=== PATIENT | male | born 1960 | race Caucasian/White ===

== ENCOUNTER 2019-09-14 22:18 | Emergency (ER) | payer BC ==
[2019-09-14 22:51] VITALS: O2SAT 97
[2019-09-14] MEDS ORDERED: Augmentin 875-125 Tablet PO ONE (23:16)
[2019-09-14] MEDS ORDERED: Augmentin 875-125 Tablet ONE (23:28)
--- NOTE | 2019-09-14 23:31 | ERPHSYRPT ---
- History of Present Illness Patient Subjective Stated Complaint: Patient states " My dog at home is blind and hard of hearing and she was getting ready to run into something and i went to grab her and she bite my right index finger and it started to swell and I havent been able to bend it". Triage Nursing Assessment: Patient arrived to ER per self. Patient A/O times 4. Patient able to answer questions appropriatley and able to follow simple commands. Patient's right index finger red in color and swollen. 2 puncture alves noted to right index finger. 1st punture wound to top of right index finger measures 0.2 and < 0.1 in depth. 2 puncture wound noted to backside of right index finger that measures 0.5 and > 0.1 in depth. No drainage noted from punture wounds. Patient states is able to feel sensation. + radial pulse noted to right upper extremity. Patient states it really doesnt hurt until he trys to bend it. Physician History: 59 yo wm w own dog vs R index finger 14 hours prior to arrival. Pt UTD on tetanus. Dog is immunized and acting ok. Pt is R handed and denies other/ previous injuries. Pain 1/10 on scale. Timing/Duration: other (14 hours) Activities at Onset: none, other Severity of Dyspnea-Max: none Severity of Dyspnea-Current: none Possible Cause: no prior episodes Modifying Factors: Improves With: nothing Associated Symptoms: denies symptoms Allergies/Adverse Reactions: No Known Drug Allergies Allergy (Unverified 09/14/19 23:25) Hx Tetanus, Diphtheria Vaccination/Date Given: Yes Hx Influenza Vaccination/Date Given: No Hx Pneumococcal Vaccination/Date Given: No Immunizations Up to Date: Yes Travel Risk - International Travel Have you traveled outside of the country in past 3 weeks: No - Coronavirus Screening Are you exhibiting any of the following symptoms?: No Close contact with a COVID-19 positive Pt in past 14-21 Days: No - Review of Systems Constitutional: No Symptoms Eyes: No Symptoms Ears, Nose, & Throat: No Symptoms Respiratory: No Symptoms Cardiac: No Symptoms Abdominal/Gastrointestinal: No Symptoms Genitourinary Symptoms: No Symptoms Skin: No Symptoms Neurological: No Symptoms Psychological: No Symptoms Endocrine: No Symptoms Hematologic/Lymphatic: No Symptoms Immunological/Allergic: No Symptoms - Past Medical History Pertinent Past Medical History: No Neurological History: No Pertinent History ENT History: No Pertinent History Cardiac History: No Pertinent History Respiratory History: No Pertinent History Endocrine Medical History: No Pertinent History Musculoskeletal History: No Pertinent History GI Medical History: No Pertinent History History: No Pertinent History Psycho-Social History: No Pertinent History Male Reproductive Disorders: No Pertinent History - Past Surgical History Past Surgical History: Yes Neuro Surgical History: No Pertinent History Cardiac: No Pertinent History Respiratory: No Pertinent History Gastrointestinal: No Pertinent History Genitourinary: No Pertinent History Musculoskeletal: No Pertinent History Male Surgical History: No Pertinent History - Social History Smoking Status: Never smoker Exposure to second hand smoke: Yes Drug Use: none Patient Lives Alone: No Significant Family History: no pertinent family hx - Nursing Vital Signs Nursing Vital Signs: Initial Vital Signs Temperature 98.4 F 09/14/19 22:41 Pulse Rate 90 09/14/19 22:41 Respiratory Rate 18 09/14/19 22:41 Blood Pressure 170/95 09/14/19 22:41 O2 Sat by Pulse Oximetry 97 09/14/19 22:41 Pain Scale Pain Intensity 2 - Physical Exam General Appearance: no apparent distress Eye Exam: PERRL/EOMI, eyes nml inspection Ears, Nose, Throat Exam: hearing grossly normal Neck Exam: normal inspection, non-tender, full range of motion Respiratory Exam: normal breath sounds, lungs clear, airway intact Cardiovascular/Chest Exam: normal heart sounds, regular rate/rhythm, normal peripheral pulses, friction rub, No murmur Abdominal/Gastrointestinal Exam: soft, normal bowel sounds Rectal Exam: deferred Extremity Exam: swelling (R index w mild erythema/edema w small puncture wounds/ good distal capillary return and sensation) Neurologic Exam: alert, oriented x 3, cooperative Skin Exam: warm, dry Lymphatic Exam: No adenopathy SpO2 Interpretation: normal SpO2: 97 O2 Delivery: Room Air - Course Nursing assessment & vital signs reviewed: Yes Ordered Tests: Medication Summary Discontinued Medications Generic Name Dose Route Start Last Admin Trade Name Freq PRN Reason Stop Dose Admin Amoxicillin/Clavulanate Potassium 875 mg 09/14/19 23:16 Augmentin 875-125 Tablet PO 09/14/19 23:17 STAT ONE - Progress Progress: unchanged Air Movement: good Progress Note: 09/14/19 23:30 Pt UTD on tetanus after record search. He refuses pain meds. Augmentin started in ER. No need for XR due to minimal crush injury Counseled pt/family regarding: diagnosis, need for follow-up - Departure Departure Disposition: Home Clinical Impression: Dog bite Condition: Stable Critical Care Time: No Referrals: COLEEN COTTO [Primary Care Provider] - Additional Instructions: Continue with Augmentin in AM Wash finger twice a day with soap/water Watch for signs of infection-redness/pain/pus/temperature >100.5 Prescriptions: Amoxicillin/Potassium Clav [Augmentin 875-125 Tablet] 1 each PO BID #20 tablet
[2019-09-14 23:36] VITALS: BP 161/100; PULSE 84
== END 2019-09-14 23:44 | disposition home or self-care (01) ==
LOC: ED 22:18
DX: S60.470A Other superficial bite of right index finger, initial encounter (principal)
CPT/HCPCS: 99283; A9270-GY

== ENCOUNTER 2020-10-22 19:04 | Emergency (ER) | payer BC ==
--- NOTE | 2020-10-22 19:12 | ERPHSYRPT ---
- History of Present Illness Time Seen by Provider: 10/22/20 19:11 Historian: patient Exam Limitations: no limitations Physician History: This is a 60-year-old white male has had 2-day history of nausea and diarrhea. He had no vomiting. His was diagnosed with COVID-19 infection and his symptoms have worsened in the last couple days including a cough and myalgias a nd arthralgias. He has no chest pain. He has no significant shortness of breath. He is noted no significant abdominal pain. He is concerned because all day, prior to arrival he is had very clear liquid bowel movements every time he attempts to drink or eat. Timing/Duration: day(s) (2 days) Quality: cramping Abdominal Pain Onset Location: generalized abdomen Pain Radiation: no radiation Severity of Pain-Max: mild Severity of Pain-Current: mild Modifying Factors: Improves With: nothing Associated Symptoms: diarrhea, loss of appetite, nausea Previous symptoms: no prior history Allergies/Adverse Reactions: No Known Drug Allergies Allergy (Unverified 10/22/20 19:17) Home Medications: Ivermectin 18 mg PO DAILY 10/22/20 [History] Hx Tetanus, Diphtheria Vaccination/Date Given: Yes Hx Influenza Vaccination/Date Given: No Hx Pneumococcal Vaccination/Date Given: No Travel Risk - International Travel Have you traveled outside of the country in past 3 weeks: No - Coronavirus Screening Are you exhibiting any of the following symptoms?: No Close contact with a COVID-19 positive Pt in past 14-21 Days: No - Review of Systems Constitutional: No Symptoms Eyes: No Symptoms Ears, Nose, & Throat: No Symptoms Respiratory: No Symptoms Cardiac: No Symptoms Abdominal/Gastrointestinal: Abdominal Pain, Nausea, Diarrhea Genitourinary Symptoms: No Symptoms Musculoskeletal: No Symptoms Skin: No Symptoms Neurological: No Symptoms Psychological: No Symptoms Endocrine: No Symptoms Hematologic/Lymphatic: No Symptoms Immunological/Allergic: No Symptoms All Other Systems: Reviewed and Negative - Past Medical History Pertinent Past Medical History: No Neurological History: No Pertinent History ENT History: No Pertinent History Cardiac History: No Pertinent History Respiratory History: No Pertinent History Endocrine Medical History: No Pertinent History Musculoskeletal History: No Pertinent History GI Medical History: No Pertinent History History: No Pertinent History Psycho-Social History: No Pertinent History Male Reproductive Disorders: No Pertinent History - Past Surgical History Past Surgical History: Yes Neuro Surgical History: No Pertinent History Cardiac: No Pertinent History Respiratory: No Pertinent History Gastrointestinal: No Pertinent History Genitourinary: No Pertinent History Musculoskeletal: No Pertinent History Male Surgical History: No Pertinent History - Social History Smoking Status: Never smoker Exposure to second hand smoke: Yes Drug Use: none Patient Lives Alone: No Significant Family History: no pertinent family hx - Nursing Vital Signs Nursing Vital Signs: Initial Vital Signs Temperature 99 F 10/22/20 19:05 Pulse Rate 108 H 10/22/20 19:05 Respiratory Rate 18 10/22/20 19:05 Blood Pressure 143/95 10/22/20 19:05 O2 Sat by Pulse Oximetry 95 10/22/20 19:05 Pain Scale Pain Intensity 0 - Physical Exam General Appearance: no apparent distress, alert, anxiety Eye Exam: PERRL/EOMI, eyes nml inspection Ears, Nose, Throat Exam: normal ENT inspection, moist mucous membranes Neck Exam: normal inspection, non-tender, supple, full range of motion Respiratory Exam: normal breath sounds, lungs clear, airway intact, No chest tenderness, No respiratory distress Cardiovascular Exam: tachycardia Gastrointestinal/Abdomen Exam: soft, normal bowel sounds, tenderness (Mild diffuse) Rectal Exam: not done Extremity Exam: normal inspection, normal range of motion, pelvis stable Neurologic Exam: alert, oriented x 3, cooperative, director funeral II-XII nml as tested, normal mood/affect, nml cerebellar function, nml station & gait, sensation nml Skin Exam: normal color, warm, dry Lymphatic Exam: No adenopathy SpO2 Interpretation: normal O2 Delivery: Room Air - Course Nursing assessment & vital signs reviewed: Yes EKG Interpreted by Me: RATE (102), Sinus Tach, Right [place] Deviation, NORMAL INTERVALS, NORMAL QRS, NORMAL ST-T, Other (No acute ischemic changes. No comparison EKG available.) Ordered Tests: Active Orders 24 hr Category Date Time Status EKG-ER Only STAT Care 10/22/20 19:28 Active IV Insertion STAT Care 10/22/20 19:26 Active Isolation, Initiate & Maintain STAT Care 10/22/20 19:27 Active CHEST 1 VIEW (PORTABLE) Stat Exams 10/22/20 19:28 Taken CHEST WITH CONTRAST [CT] Stat Exams 10/22/20 20:38 Taken AMYLASE Stat Lab 10/22/20 19:53 Completed CBC W DIFF Stat Lab 10/22/20 19:53 Completed CMP Stat Lab 10/22/20 19:53 Completed D-DIMER QUANTITATIVE Stat Lab 10/22/20 19:53 Completed Ferritin Stat Lab 10/22/20 19:53 Completed LDH-LACTATE DEHYDROGENASE Stat Lab 10/22/20 19:53 Completed LIPASE Stat Lab 10/22/20 19:53 Completed Lactic Acid Stat Lab 10/22/20 19:50 Completed Wilkin Screen Stat Lab 10/22/20 19:53 Completed TROPONIN Q3H Lab 10/22/20 19:59 Completed TROPONIN Q3H Lab 10/22/20 22:10 Completed TROPONIN Q3H Lab 10/23/20 01:30 Ordered TROPONIN Q3H Lab 10/23/20 04:30 Ordered TROPONIN Q3H Lab 10/23/20 07:30 Ordered UA W/RFX UR CULTURE Stat Lab 10/22/20 19:53 Completed Medication Summary Discontinued Medications Generic Name Dose Route Start Last Admin Trade Name Freq PRN Reason Stop Dose Admin Sodium Chloride 1,000 mls @ 999 mls/hr 10/22/20 19:26 10/22/20 20:38 Sodium Chloride 0.9% 1000 Ml IV 10/22/20 20:26 Infused .Q1H1M STA Infusion Sodium Chloride Confirm 10/22/20 19:29 Sodium Chloride 0.9% 1000 Ml Administered 10/22/20 19:30 Dose 1,000 mls @ ud .ROUTE .STK-MED ONE Sodium Chloride 1,000 mls @ 999 mls/hr 10/22/20 20:39 10/22/20 22:04 Sodium Chloride 0.9% 1000 Ml IV 10/22/20 21:39 Infused .Q1H1M STA Infusion Sodium Chloride Confirm 10/22/20 20:48 Sodium Chloride 0.9% 1000 Ml Administered 10/22/20 20:49 Dose 1,000 mls @ ud .ROUTE .STK-MED ONE Ondansetron HCl 4 mg 10/22/20 19:26 10/22/20 19:30 Zofran 4 Mg/2 Ml Vial IV 10/22/20 19:27 4 mg STAT ONE Administration Ondansetron HCl Confirm 10/22/20 19:29 Zofran 4 Mg/2 Ml Vial Administered 10/22/20 19:30 Dose 4 mg .ROUTE .STK-MED ONE Lab/Rad Data: Laboratory Result Diagrams 10/22/20 19:53 10/22/20 19:53 Laboratory Results 10/22/20 10/22/20 10/22/20 Range/Units 22:10 19:59 19:53 WBC (4.0-10.5) K/mm3 RBC (4.1-5.6) M/mm3 Hgb (12.5-18.0) gm/dl Hct (42-50) % MCV (78-100) fl MCH (26-32) pg MCHC (32-36) g/dl RDW (11.5-14.0) % Plt Count (150-450) K/mm3 MPV (7.5-11.0) fl Gran % (36.0-66.0) % Eos # (Auto) (0-0.5) Absolute Lymphs (auto) (1.0-4.6) Absolute Monos (auto) (0.0-1.3) Lymphocytes % (24.0-44.0) % Monocytes % (0.0-12.0) % Eosinophils % (0.00-5.0) % Basophils % (0.0-0.4) % Absolute Granulocytes (1.4-6.9) Basophils # (0-0.4) D-Dimer (215-500) ng/mL Sodium (137-145) mmol/L Potassium (3.5-5.1) mmol/L Chloride (98-107) mmol/L Carbon Dioxide (22-30) mmol/L Anion Gap (5-15) MEQ/L BUN (9-20) mg/dL Creatinine (0.66-1.25) mg/dL Estimated GFR ML/MIN Glucose (74-106) mg/dL Lactic Acid (0.4-2.0) Calcium (8.4-10.2) mg/dL Ferritin (17.9-464) ng/mL Total Bilirubin (0.2-1.3) mg/dL AST (17-59) U/L ALT (0-50) U/L Alkaline Phosphatase (38-126) U/L Lactate Dehydrogenase (120-246) U/L Troponin I < 0.012 < 0.012 (0.000-0.034) ng/mL Serum Total Protein (6.3-8.2) g/dL Albumin (3.5-5.0) g/dL Amylase (30-110) U/L Lipase (23-300) U/L Urine Color (YELLOW) Urine Appearance (CLEAR) Urine pH (5-6) Ur Specific [place] (1.005-1.025) Urine Protein (Negative) Urine Ketones (NEGATIVE) Urine Blood (0-5) Naman/ul Urine Nitrite (NEGATIVE) Urine Bilirubin (NEGATIVE) Urine Urobilinogen (0-1) mg/dL Ur Leukocyte Esterase (NEGATIVE) Urine WBC (Auto) (0-5) /HPF Urine RBC (Auto) (0-2) /HPF U Hyaline Cast (Auto) (0-2) /LPF U Epithel Cells (Auto) (FEW) /HPF Urine Bacteria (Auto) (NEGATIVE) /HPF Urine Mucus (Auto) (NEGATIVE) /HPF Urine Culture Reflexed (NO) Urine Glucose (NEGATIVE) mg/dL Monoscreen NEGATIVE (Negative) 10/22/20 10/22/20 10/22/20 Range/Units 19:53 19:53 19:53 WBC (4.0-10.5) K/mm3 RBC (4.1-5.6) M/mm3 Hgb (12.5-18.0) gm/dl Hct (42-50) % MCV (78-100) fl MCH (26-32) pg MCHC (32-36) g/dl RDW (11.5-14.0) % Plt Count (150-450) K/mm3 MPV (7.5-11.0) fl Gran % (36.0-66.0) % Eos # (Auto) (0-0.5) Absolute Lymphs (auto) (1.0-4.6) Absolute Monos (auto) (0.0-1.3) Lymphocytes % (24.0-44.0) % Monocytes % (0.0-12.0) % Eosinophils % (0.00-5.0) % Basophils % (0.0-0.4) % Absolute Granulocytes (1.4-6.9) Basophils # (0-0.4) D-Dimer 984 H* (215-500) ng/mL Sodium (137-145) mmol/L Potassium (3.5-5.1) mmol/L Chloride (98-107) mmol/L Carbon Dioxide (22-30) mmol/L Anion Gap (5-15) MEQ/L BUN (9-20) mg/dL Creatinine (0.66-1.25) mg/dL Estimated GFR ML/MIN Glucose (74-106) mg/dL Lactic Acid (0.4-2.0) Calcium (8.4-10.2) mg/dL Ferritin 345 (17.9-464) ng/mL Total Bilirubin (0.2-1.3) mg/dL AST (17-59) U/L ALT (0-50) U/L Alkaline Phosphatase (38-126) U/L Lactate Dehydrogenase 283 H (120-246) U/L Troponin I (0.000-0.034) ng/mL Serum Total Protein (6.3-8.2) g/dL Albumin (3.5-5.0) g/dL Amylase (30-110) U/L Lipase (23-300) U/L Urine Color (YELLOW) Urine Appearance (CLEAR) Urine pH (5-6) Ur Specific [place] (1.005-1.025) Urine Protein (Negative) Urine Ketones (NEGATIVE) Urine Blood (0-5) Naman/ul Urine Nitrite (NEGATIVE) Urine Bilirubin (NEGATIVE) Urine Urobilinogen (0-1) mg/dL Ur Leukocyte Esterase (NEGATIVE) Urine WBC (Auto) (0-5) /HPF Urine RBC (Auto) (0-2) /HPF U Hyaline Cast (Auto) (0-2) /LPF U Epithel Cells (Auto) (FEW) /HPF Urine Bacteria (Auto) (NEGATIVE) /HPF Urine Mucus (Auto) (NEGATIVE) /HPF Urine Culture Reflexed (NO) Urine Glucose (NEGATIVE) mg/dL Monoscreen (Negative) 10/22/20 10/22/20 10/22/20 Range/Units 19:53 19:53 19:53 WBC 6.1 (4.0-10.5) K/mm3 RBC 5.47 (4.1-5.6) M/mm3 Hgb 14.3 (12.5-18.0) gm/dl Hct 45.0 (42-50) % MCV 82.3 (78-100) fl MCH 26.1 (26-32) pg MCHC 31.8 L (32-36) g/dl RDW 15.1 H (11.5-14.0) % Plt Count 213 (150-450) K/mm3 MPV 9.5 (7.5-11.0) fl Gran % 73.5 H (36.0-66.0) % Eos # (Auto) 0.03 (0-0.5) Absolute Lymphs (auto) 1.05 (1.0-4.6) Absolute Monos (auto) 0.52 (0.0-1.3) Lymphocytes % 17.2 L (24.0-44.0) % Monocytes % 8.5 (0.0-12.0) % Eosinophils % 0.5 (0.00-5.0) % Basophils % 0.3 (0.0-0.4) % Absolute Granulocytes 4.47 (1.4-6.9) Basophils # 0.02 (0-0.4) D-Dimer (215-500) ng/mL Sodium 139 (137-145) mmol/L Potassium 4.4 (3.5-5.1) mmol/L Chloride 100 (98-107) mmol/L Carbon Dioxide 23 (22-30) mmol/L Anion Gap 19.8 H (5-15) MEQ/L BUN 18 (9-20) mg/dL Creatinine 1.15 (0.66-1.25) mg/dL Estimated GFR > 60.0 ML/MIN Glucose 109 H (74-106) mg/dL Lactic Acid (0.4-2.0) Calcium 9.3 (8.4-10.2) mg/dL Ferritin (17.9-464) ng/mL Total Bilirubin 0.40 (0.2-1.3) mg/dL AST 57 (17-59) U/L ALT 28 (0-50) U/L Alkaline Phosphatase 56 (38-126) U/L Lactate Dehydrogenase (120-246) U/L Troponin I (0.000-0.034) ng/mL Serum Total Protein 8.1 (6.3-8.2) g/dL Albumin 5.0 (3.5-5.0) g/dL Amylase 148 H (30-110) U/L Lipase 726 H (23-300) U/L Urine Color ROCÍO (YELLOW) Urine Appearance CLOUDY (CLEAR) Urine pH 5.0 (5-6) Ur Specific [place] 1.030 (1.005-1.025) Urine Protein 100 (Negative) Urine Ketones SMALL (NEGATIVE) Urine Blood NEGATIVE (0-5) Naman/ul Urine Nitrite NEGATIVE (NEGATIVE) Urine Bilirubin NEGATIVE (NEGATIVE) Urine Urobilinogen NEGATIVE (0-1) mg/dL Ur Leukocyte Esterase NEGATIVE (NEGATIVE) Urine WBC (Auto) 3-5 (0-5) /HPF Urine RBC (Auto) NONE SEEN (0-2) /HPF U Hyaline Cast (Auto) 11-25 (0-2) /LPF U Epithel Cells (Auto) RARE (FEW) /HPF Urine Bacteria (Auto) FEW (NEGATIVE) /HPF Urine Mucus (Auto) MANY (NEGATIVE) /HPF Urine Culture Reflexed NO (NO) Urine Glucose NEGATIVE (NEGATIVE) mg/dL Monoscreen (Negative) 10/22/20 Range/Units 19:50 WBC (4.0-10.5) K/mm3 RBC (4.1-5.6) M/mm3 Hgb (12.5-18.0) gm/dl Hct (42-50) % MCV (78-100) fl MCH (26-32) pg MCHC (32-36) g/dl RDW (11.5-14.0) % Plt Count (150-450) K/mm3 MPV (7.5-11.0) fl Gran % (36.0-66.0) % Eos # (Auto) (0-0.5) Absolute Lymphs (auto) (1.0-4.6) Absolute Monos (auto) (0.0-1.3) Lymphocytes % (24.0-44.0) % Monocytes % (0.0-12.0) % Eosinophils % (0.00-5.0) % Basophils % (0.0-0.4) % Absolute Granulocytes (1.4-6.9) Basophils # (0-0.4) D-Dimer (215-500) ng/mL Sodium (137-145) mmol/L Potassium (3.5-5.1) mmol/L Chloride (98-107) mmol/L Carbon Dioxide (22-30) mmol/L Anion Gap (5-15) MEQ/L BUN (9-20) mg/dL Creatinine (0.66-1.25) mg/dL Estimated GFR ML/MIN Glucose (74-106) mg/dL Lactic Acid 0.8 (0.4-2.0) Calcium (8.4-10.2) mg/dL Ferritin (17.9-464) ng/mL Total Bilirubin (0.2-1.3) mg/dL AST (17-59) U/L ALT (0-50) U/L Alkaline Phosphatase (38-126) U/L Lactate Dehydrogenase (120-246) U/L Troponin I (0.000-0.034) ng/mL Serum Total Protein (6.3-8.2) g/dL Albumin (3.5-5.0) g/dL Amylase (30-110) U/L Lipase (23-300) U/L Urine Color (YELLOW) Urine Appearance (CLEAR) Urine pH (5-6) Ur Specific [place] (1.005-1.025) Urine Protein (Negative) Urine Ketones (NEGATIVE) Urine Blood (0-5) Naman/ul Urine Nitrite (NEGATIVE) Urine Bilirubin (NEGATIVE) Urine Urobilinogen (0-1) mg/dL Ur Leukocyte Esterase (NEGATIVE) Urine WBC (Auto) (0-5) /HPF Urine RBC (Auto) (0-2) /HPF U Hyaline Cast (Auto) (0-2) /LPF U Epithel Cells (Auto) (FEW) /HPF Urine Bacteria (Auto) (NEGATIVE) /HPF Urine Mucus (Auto) (NEGATIVE) /HPF Urine Culture Reflexed (NO) Urine Glucose (NEGATIVE) mg/dL Monoscreen (Negative) - Progress Progress: improved Progress Note: 10/22/20 22:41 Chest x-ray shows no acute cardiopulmonary process. 10/22/20 23:36 CAT scan of the chest with contrast shows lateral multifocal groundglass opacities commonly seen in COVID-19 pneumonia. There are no pulmonary emboli p resent. There is no evidence of any pleural effusions or infiltrates 10/22/20 23:37 Medical decision making: This patient has clinical picture and radiographic findings consistent with COVID-19 infection. Patient is oxygenating well and feels much better after intravenous fluids. He wants to go home. I think this is reasonable. We will obtain a COVID-19 test that will be sent as an outpatient. He will confined himself to home until he receives word on his test results. Counseled pt/family regarding: lab results, diagnosis, need for follow-up, rad results - Departure Departure Disposition: Home Clinical Impression: Viral syndrome, Diarrhea Condition: Stable Critical Care Time: No Referrals: COLEEN COTTO [Primary Care Provider] - Additional Instructions: Drink plenty of fluids. Use Tylenol and ibuprofen every 4 hours as discussed to control fever and muscle aches and pains. Do not advance your diet until you are taking adequate amount of clear liquids well and often. Confine yourself to home until you are made aware of your COVID-19 test results.
[2020-10-22] MEDS ORDERED: Sodium Chloride 0.9% 1000 ML 1,000 ML IV STA ×2 (19:26→20:39)
[2020-10-22] MEDS ORDERED: Zofran 4 MG/2 ML VIAL IV ONE (19:26)
[2020-10-22] MEDS ORDERED: Sodium Chloride 0.9% 1000 ML 1,000 ML ONE ×2 (19:29→20:48)
[2020-10-22] MEDS ORDERED: Zofran 4 MG/2 ML VIAL ONE (19:29)
[2020-10-22 20:04] LABS: Absolute Neutrophil Ct (ANC) 4.47 (1.4-6.9); BASOPHIL % 0.3 % (0.0-0.4); Basophil (Absolute #) 0.02 (0-0.4); Eosinophil % 0.5 % (0.00-5.0); Eosinophil (Absolute #) 0.03 (0-0.5); Hemoglobin 14.3 gm/dl (12.5-18.0); Lymphocyte (Absolute #) 1.05 (1.0-4.6); Lymphocytes % 17.2 % (24.0-44.0); Mean Cell Volume 82.3 fl (78-100); Mean Corpuscular Hemoglobin 26.1 pg (26-32); Mean Corpuscular Hgb Concent. 31.8 g/dl (32-36); Mean Platelet Volume 9.5 fl (7.5-11.0); Monocyte (Absolute #) 0.52 (0.0-1.3); Monocytes % 8.5 % (0.0-12.0); Neutrophil % 73.5 % (36.0-66.0); Platelet Count 213 K/mm3 (150-450); Red Blood Count 5.47 M/mm3 (4.1-5.6); Red Cell Distribution Width 15.1 % (11.5-14.0); White Blood Count 6.1 K/mm3 (4.0-10.5)
[2020-10-22 20:21] LABS: Appearance CLOUDY (CLEAR); Bacteria FEW /HPF (NEGATIVE); Bilirubin NEGATIVE (NEGATIVE); Blood NEGATIVE Ery/ul (0-5); Epithelial Cells RARE /HPF (FEW); Glucose NEGATIVE (NEGATIVE); Ketones SMALL (NEGATIVE); Leukocyte Esterase NEGATIVE (NEGATIVE); Mucus MANY /HPF (NEGATIVE); Nitrite NEGATIVE (NEGATIVE); Protein,Urine Dip 100 (Negative); Urobilinogen NEGATIVE mg/dL (0-1)
[2020-10-22 20:25] LABS: ALKALINE PHOSPHATASE 56 U/L (38-126); AMYLASE 148 U/L (30-110); ANION GAP 19.8 MEQ/L (5-15); BLOOD UREA NITROGEN 18 mg/dL (9-20); CHLORIDE 100 mmol/L (98-107); Calcium 9.3 mg/dL (8.4-10.2); Carbon Dioxide 23 mmol/L (22-30); Creatinine 1 1.15 mg/dL (0.66-1.25); EST GLOMERULAR FILTRATION RATE > 60.0 ML/MIN; Glucose 109 mg/dL (74-106); LIPASE 726 U/L (23-300); Potassium 4.4 mmol/L (3.5-5.1); RBC NONE SEEN /HPF (0-2); SGOT/AST 57 U/L (17-59); SGPT/ALT 28 U/L (0-50); SODIUM 139 mmol/L (137-145); Total Protein 8.1 g/dL (6.3-8.2)
[2020-10-22] MEDS ORDERED: Lactated Ringers 1,000 ML IV ONE ×2 (23:31→23:32)
[2020-10-23 00:11] VITALS: BP 152/100; PULSE 88; O2SAT 96
[2020-10-23 01:47] LABS: Adenovirus F 40/41 NEGATIVE (NEGATIVE); Astrovirus NEGATIVE (NEGATIVE); C. Difficile Organism NEGATIVE (NEGATIVE); Campylobacter NEGATIVE (NEGATIVE); Cryptosporidium NEGATIVE (NEGATIVE); Cyclospora cayentanensis NEGATIVE (NEGATIVE); Entamoeaba histolytica NEGATIVE (NEGATIVE); Enteroaggregative E.coli NEGATIVE (NEGATIVE); Enteropathogenic E.coli NEGATIVE (NEGATIVE); Enterotoxigenic E.coli NEGATIVE (NEGATIVE); Giardia lamblia NEGATIVE (NEGATIVE); Norovirus GI/GII NEGATIVE (NEGATIVE); Plesiomonas shigelloides NEGATIVE (NEGATIVE); Rotavirus A NEGATIVE (NEGATIVE); Salmonella NEGATIVE (NEGATIVE); Sapovirus NEGATIVE (NEGATIVE); Shiga-like toxin prod.E.coli NEGATIVE (NEGATIVE); Vibrio NEGATIVE (NEGATIVE); Vibrio cholerae NEGATIVE (NEGATIVE); Yersinia enterocolitica NEGATIVE (NEGATIVE)
--- NOTE | 2020-10-23 07:55 | XRAY ---
Indication: Cough. Comparison: None Portable chest demonstrates subtle patchy bibasilar groundglass airspace disease without consolidation/large effusion. Remaining heart and lungs unremarkable. Bony thorax intact.
--- NOTE | 2020-10-23 08:01 | XRAY ---
Indication: Fever and cough. Elevated d-dimer. Multiple contiguous axial images obtained through the chest using 100 cc Isovue 370 contrast and PE protocol. Comparison: None There is good opacification of the pulmonary arteries to include the lobar and segmental branches. No pulmonary embolus. Heart not enlarged. Aorta normal in course and caliber. No pathologic mediastinal/hilar lymphadenopathy. Lungs demonstrates several round peripheral groundglass airspace opacities. No consolidation or effusion. Bony thorax intact. Limited upper abdomen unremarkable. Impression: 1. Negative pulmonary embolus. 2. Bilateral round peripheral groundglass airspace opacities. Commonly reported imaging features of COVID 19 pneumonia are present. Other processes such as influenza pneumonia and organizing pneumonia, as can be seen with drug toxicity and connective tissue disease, can cause a similar imaging pattern. Comment: Preliminary interpretation was made by [facility]. No critical discrepancy.
== END 2020-10-23 00:26 | disposition home or self-care (01) ==
LOC: ED 19:04
DX: B34.9 Viral infection, unspecified (principal); R19.7 Diarrhea, unspecified
CPT/HCPCS: 0097U; 36000; 36415; 71045; 71260; 80053; 81001; 82150; 82728; 83605; 83615; 83690; 84484; 85025; 85379; 86308; 93005; 96360; 96374; 99285; U0003; J2405

== ENCOUNTER 2021-03-29 06:30 | Day surgery (SDC) | payer BC ==
[~2021-03-29 06:30] MED LIST: Lactated Ringers 1,000 ML IV SCH
[2021-03-29] MEDS ORDERED: DIPRIVAN 200 MG/20 ML IV ONE (08:21)
--- NOTE | 2021-03-29 09:11 | OP ---
SURGERY DATE/TIME: 03/29/2021 0808 PREOPERATIVE DIAGNOSIS: Change in bowel habits. POSTOPERATIVE DIAGNOSIS: Normal colon. PROCEDURE: Colonoscopy. SURGEON: Neel Duarte M.D. ANESTHESIA: MAC by Christiano Rosenbaum CRNA. ESTIMATED BLOOD LOSS: None. SPECIMENS: None. DESCRIPTION OF PROCEDURE: After informed written consent was obtained, the patient was taken to the endoscopy suite. He had his anesthesia titrated to the desired level of consciousness in the left lateral decubitus position. Digital rectal exam showed normal sphincter tone and no internal lesions. The scope was inserted into the rectum and sequentially the entire colonic mucosa was traversed. The level of cecum was reached and verified with direct visualization of the ileocecal valve. Upon withdrawal careful mucosal inspection revealed no gross abnormalities. Prior to withdrawal retroflexion was performed and showed no internal lesions. The scope was removed. The patient was transferred to the recovery room in good condition.
[2021-03-29 09:15] VITALS: BP 150/87; PULSE 58; O2SAT 99
== END 2021-03-29 09:24 | disposition home or self-care (01) ==
LOC: SDC 06:30
PROVIDERS: ATTEND Family Medicine
DX: R19.4 Change in bowel habit (principal)
CPT/HCPCS: J2704

== ENCOUNTER 2022-09-17 21:50 | Emergency (ER) | payer BC ==
[2022-09-17] MEDS ORDERED: CLONIDINE 0.1 MG TABLET PO ONE (22:17)
[2022-09-17] MEDS ORDERED: CLONIDINE 0.1 MG TABLET ONE (22:21)
[2022-09-17 22:26] LABS: Absolute Neutrophil Ct (ANC) 3.55 x10^3/uL (1.4-6.9); BASOPHIL % 0.5 % (0.0-0.4); Basophil (Absolute #) 0.03 x10^3/uL (0-0.4); Eosinophil % 3.9 % (0.00-5.0); Eosinophil (Absolute #) 0.23 x10^3/uL (0-0.5); Hematocrit 40.3 % (42-50); Hemoglobin 12.5 g/dL (12.5-18.0); IMMATURE GRAN # 0.01 x10^3u/L (0.00-0.03); IMMATURE GRAN % 0.2 % (0.00-0.4); Lymphocyte (Absolute #) 1.59 x10^3/uL (1.0-4.6); Lymphocytes % 27.2 % (24.0-44.0); Mean Cell Volume 84.7 fL (78-100); Mean Corpuscular Hemoglobin 26.3 pg (26-32); Mean Platelet Volume 9.5 fL (7.5-11.0); Monocyte (Absolute #) 0.44 x10^3/uL (0.0-1.3); Monocytes % 7.5 % (0.0-12.0); Neutrophil % 60.7 % (36.0-66.0); Platelet Count 222 x10^3/uL (150-450); Red Blood Count 4.76 x10^6/uL (4.1-5.6); Red Cell Distribution Width 14.6 % (11.5-14.0); White Blood Count 5.9 x10^3/uL (4.0-10.5)
--- NOTE | 2022-09-17 22:34 | ERPHSYRPT ---
- History of Present Illness Source: patient, other () Exam Limitations: no limitations Patient Subjective Stated Complaint: pt states "last night around 10pm I was a little dizzy when I stood up but had not other symptoms. on and off today I have had some dizziness, left chest tightness (points to just under left breast), and slight nausea and slight headache. right now 2/10 left chest tightness but no other symptoms. I also feel like I need to take deep breaths like after I have been running". Triage Nursing Assessment: pt is alert and oriented times three and ambulated into room 5 independently with slow steady gait after standing on scale for weight acquisition. resp even and unlabored with occasional deep breath taken. no use of accessory muscles outside occasional deep breaths. able to move all extremities and speaks in complete sentences. denies n/v/ diarrhea, constipation, dizziness, lightheadedness, difficulty with urination or bowel elimination, numbness or tingling. no edema noted. bilat pedal pulse palpable strong and equal. heart sounds regular and normal. anterior lung sounds clear bilat in all [place]. abd soft, nontender, nondistended. cp is not reproducible with touch or movement. Physician History: 62 yo WM w dizziness/hypertension x 1 day. Pt also complains of headache/nausea/chest tightness which is L sternal. Chest pain is 2/10 and does not radiate. He denies focal weakness/dyspnea/cough/fever. Pt has a h/o untreated hypertension/hyperlipidemia. He does not smoke. Timing/Duration: today Severity: moderate Modifying Factors: Improves With: nothing Associated Symptoms: nausea, headaches Allergies/Adverse Reactions: No Known Drug Allergies Allergy (Verified 09/17/22 21:53) Hx Tetanus, Diphtheria Vaccination/Date Given: Yes Hx Influenza Vaccination/Date Given: No Hx Pneumococcal Vaccination/Date Given: No Immunizations Up to Date: Yes Travel Risk - International Travel Have you traveled outside of the country in past 3 weeks: No - Coronavirus Screening Are you exhibiting any of the following symptoms?: No Close contact with a COVID-19 positive Pt in past 14-21 Days: No - Vaccine Status Have you recieved a Covid-19 vaccination: No - Review of Systems Constitutional: No Symptoms Eyes: No Symptoms Ears, Nose, & Throat: No Symptoms Respiratory: No Symptoms Cardiac: No Symptoms, Chest Pain Abdominal/Gastrointestinal: No Symptoms, Nausea Genitourinary Symptoms: No Symptoms Musculoskeletal: No Symptoms Skin: No Symptoms Neurological: No Symptoms, Headache Psychological: No Symptoms Endocrine: No Symptoms Hematologic/Lymphatic: No Symptoms Immunological/Allergic: No Symptoms - Past Medical History Pertinent Past Medical History: Yes Neurological History: No Pertinent History ENT History: No Pertinent History Cardiac History: Hypertension Respiratory History: No Pertinent History Endocrine Medical History: No Pertinent History Musculoskeletal History: No Pertinent History GI Medical History: No Pertinent History History: No Pertinent History Psycho-Social History: No Pertinent History Male Reproductive Disorders: No Pertinent History - Past Surgical History Past Surgical History: Yes Neuro Surgical History: No Pertinent History Cardiac: No Pertinent History Respiratory: No Pertinent History Gastrointestinal: Other Genitourinary: No Pertinent History Musculoskeletal: No Pertinent History Male Surgical History: No Pertinent History 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 - Social History Smoking Status: Never smoker Exposure to second hand smoke: No Drug Use: none Patient Lives Alone: No Significant Family History: no pertinent family hx - Nursing Vital Signs Nursing Vital Signs: Initial Vital Signs Temperature 98.0 F 09/17/22 21:54 Pulse Rate 86 09/17/22 21:54 Respiratory Rate 23 09/17/22 21:54 Blood Pressure 177/113 09/17/22 21:54 O2 Sat by Pulse Oximetry 100 09/17/22 21:54 Pain Scale Pain Intensity 0 Hypertensive - Physical Exam General Appearance: no apparent distress, anxiety Eye Exam: PERRL/EOMI, eyes nml inspection Ears, Nose, Throat Exam: normal ENT inspection, TMs normal, pharynx normal, moist mucous membranes Neck Exam: normal inspection, non-tender, supple, full range of motion, No meningismus, No mass, No Brudzinski, No Kernig's, No carotid bruit Respiratory Exam: normal breath sounds, lungs clear, airway intact, No respiratory distress Cardiovascular Exam: regular rate/rhythm, normal heart sounds, normal peripheral pulses, capillary refill <2 sec, No murmur Gastrointestinal/Abdomen Exam: soft, normal bowel sounds, No tenderness Back Exam: normal inspection, normal range of motion, No CVA tenderness, No vertebral tenderness Extremity Exam: normal inspection, normal range of motion Neurologic Exam: alert, oriented x 3, cooperative, rhinestone setter II-XII nml as tested, normal mood/affect, nml station & gait, sensation nml Skin Exam: normal color, warm, dry, No rash Lymphatic Exam: No adenopathy SpO2 Interpretation: normal SpO2: 100 O2 Delivery: Room Air - Course Nursing assessment & vital signs reviewed: Yes EKG Interpreted by Me: RATE (NSR/rate 87/Normal QT-QTc/No acute ST segment changes/Normal T waves) - Radiology Exams Chest X-ray Interpretation: Interpreted by me (CXR NAD) - CT Exams Head CT Interpretation: Tele-radiologist Report (CT head-nothing acute/neuroepithelial cysts/CTA head nothing acute) Other CT Interpretation: Tele-radiologist Report (CTA neck-no stenosis) Ordered Tests: Active Orders 24 hr Category Date Time Status EKG-ER Only STAT Care 09/17/22 22:15 Active CHEST 1 VIEW (PORTABLE) Stat Exams 09/17/22 22:[address] ANGIOGRAPHY NECK [CT] Stat Exams 09/18/22 00:34 Completed CTA HEAD W AND/OR WO CONTRAST [CT] Stat Exams 09/18/22 00:32 Completed HEAD WITHOUT CONTRAST [CT] Stat Exams 09/17/22 22:16 Completed CBC W DIFF Stat Lab 09/17/22 22:00 Completed CMP Stat Lab 09/17/22 22:00 Completed PROTIME WITH INR Stat Lab 09/17/22 22:00 Completed PTT Stat Lab 09/17/22 22:00 Completed TROPONIN Q4H Lab 09/17/22 22:00 Completed TROPONIN Q4H Lab 09/18/22 01:41 Completed TROPONIN Q4H Lab 09/18/22 06:15 Ordered Medication Summary Discontinued Medications Generic Name Dose Route Start Last Admin Trade Name Tong PRMaría Reason Stop Dose Admin Clonidine 0.2 mg 09/17/22 22:17 09/17/22 22:25 Clonidine Hcl 0.1 Mg Tablet PO 09/17/22 22:18 0.2 mg STAT ONE Administration Clonidine Confirm 09/17/22 22:21 Clonidine Hcl 0.1 Mg Tablet Administered 09/17/22 22:22 Dose 0.2 mg .ROUTE .STK-MED ONE Hydralazine HCl 10 mg 09/17/22 23:43 09/17/22 23:54 Hydralazine Hcl 20 Mg/Ml Vial IV 09/17/22 23:44 10 mg STAT ONE Administration Hydralazine HCl Confirm 09/17/22 23:51 Hydralazine Hcl 20 Mg/Ml Vial Administered 09/17/22 23:52 Dose 20 mg .ROUTE .[facility]-MED ONE Lab/Rad Data: Laboratory Result Diagrams 09/17/22 22:00 09/17/22 22:00 Laboratory Results 09/18/22 09/17/22 09/17/22 Range/Units 01:41 22:00 22:00 WBC (4.0-10.5) x10^3/uL RBC (4.1-5.6) x10^6/uL Hgb (12.5-18.0) g/dL Hct (42-50) % MCV (78-100) fL MCH (26-32) pg MCHC (32-36) g/dL RDW (11.5-14.0) % Plt Count (150-450) x10^3/uL MPV (7.5-11.0) fL Gran % (36.0-66.0) % Immature Gran % (Auto) (0.00-0.4) % Nucleat RBC Rel Count (0.00-0.1) % Eos # (Auto) (0-0.5) x10^3/uL Immature Gran # (Auto) (0.00-0.03) x10^3u/L Absolute Lymphs (auto) (1.0-4.6) x10^3/uL Absolute Monos (auto) (0.0-1.3) x10^3/uL Absolute Nucleated RBC (0.00-0.01) x10^3u/L Lymphocytes % (24.0-44.0) % Monocytes % (0.0-12.0) % Eosinophils % (0.00-5.0) % Basophils % (0.0-0.4) % Absolute Granulocytes (1.4-6.9) x10^3/uL Basophils # (0-0.4) x10^3/uL PT 10.0 (9.4-12.5) SECONDS INR 0.91 (0.8-3.0) APTT 25.9 (25.1-36.5) SECONDS Sodium 141 (137-145) mmol/L Potassium 4.0 (3.5-5.1) mmol/L Chloride 102 (98-107) mmol/L Carbon Dioxide 28 (22-30) mmol/L Anion Gap 14.4 (5-15) MEQ/L BUN 16 (9-20) mg/dL Creatinine 0.99 (0.66-1.25) mg/dL Estimated GFR > 60.0 ML/MIN Glucose 113 H (74-106) mg/dL Calcium 8.9 (8.4-10.2) mg/dL Total Bilirubin 0.30 (0.2-1.3) mg/dL AST 34 (17-59) U/L ALT 25 (0-50) U/L Alkaline Phosphatase 55 (38-126) U/L Troponin I < 0.012 < 0.012 (0.000-0.034) ng/mL Serum Total Protein 7.2 (6.3-8.2) g/dL Albumin 4.4 (3.5-5.0) g/dL 09/17/22 Range/Units 22:00 WBC 5.9 (4.0-10.5) x10^3/uL RBC 4.76 (4.1-5.6) x10^6/uL Hgb 12.5 (12.5-18.0) g/dL Hct 40.3 L (42-50) % MCV 84.7 (78-100) fL MCH 26.3 (26-32) pg MCHC 31.0 L (32-36) g/dL RDW 14.6 H (11.5-14.0) % Plt Count 222 (150-450) x10^3/uL MPV 9.5 (7.5-11.0) fL Gran % 60.7 (36.0-66.0) % Immature Gran % (Auto) 0.2 (0.00-0.4) % Nucleat RBC Rel Count 0.0 (0.00-0.1) % Eos # (Auto) 0.23 (0-0.5) x10^3/uL Immature Gran # (Auto) 0.01 (0.00-0.03) x10^3u/L Absolute Lymphs (auto) 1.59 (1.0-4.6) x10^3/uL Absolute Monos (auto) 0.44 (0.0-1.3) x10^3/uL Absolute Nucleated RBC 0.00 (0.00-0.01) x10^3u/L Lymphocytes % 27.2 (24.0-44.0) % Monocytes % 7.5 (0.0-12.0) % Eosinophils % 3.9 (0.00-5.0) % Basophils % 0.5 (0.0-0.4) % Absolute Granulocytes 3.55 (1.4-6.9) x10^3/uL Basophils # 0.03 (0-0.4) x10^3/uL PT (9.4-12.5) SECONDS INR (0.8-3.0) APTT (25.1-36.5) SECONDS Sodium (137-145) mmol/L Potassium (3.5-5.1) mmol/L Chloride (98-107) mmol/L Carbon Dioxide (22-30) mmol/L Anion Gap (5-15) MEQ/L BUN (9-20) mg/dL Creatinine (0.66-1.25) mg/dL Estimated GFR ML/MIN Glucose (74-106) mg/dL Calcium (8.4-10.2) mg/dL Total Bilirubin (0.2-1.3) mg/dL AST (17-59) U/L ALT (0-50) U/L Alkaline Phosphatase (38-126) U/L Troponin I (0.000-0.034) ng/mL Serum Total Protein (6.3-8.2) g/dL Albumin (3.5-5.0) g/dL - Progress Progress: improved Progress Note: 09/18/22 02:54 Nursing note and vital signs reviewed No food or housing insecurities noted All lab results reviewed and shared w pt/ All CT/CTA results reviewed and shared w pt/ BP decreased after 0.2 po clonidine/10mg IV Hydralyzine 09/18/22 02:56 Serial neuro exams WNL No acute EKG changes and Troponin neg x2 Norvasc 5mg po started daily Counseled pt/family regarding: lab results, diagnosis, need for follow-up, rad results Medical Desision Making - Independent Historian Additional History obtained from: Spouse - Diagnostic Testing Radiological Interpretation: Teleradiologist Report - Risk of complications The pt has a mod risk of morbidity or mortality based on: Need for prescription drug management - Departure Departure Disposition: Home Clinical Impression: Hypertension, Chest pain Condition: Stable Critical Care Time: No Referrals: JOSSELYN SANDOVAL MD [Primary Care Provider] - Follow up/PCP as directed Instructions: High Blood Pressure (DC), Chest Pain (DC) Additional Instructions: Start Norvasc Follow up with your family MD in 1-2 days Return to ER as needed Prescriptions: Amlodipine Besylate 5 mg [Norvasc 5 mg] 5 mg PO DAILY #30 tablet
[2022-09-17 22:42] LABS: INR 0.91 (0.8-3.0); PTT 25.9 SECONDS (25.1-36.5)
[2022-09-17 22:52] LABS: ALBUMIN 4.4 g/dL (3.5-5.0); ALKALINE PHOSPHATASE 55 U/L (38-126); ANION GAP 14.4 MEQ/L (5-15); BLOOD UREA NITROGEN 16 mg/dL (9-20); CHLORIDE 102 mmol/L (98-107); Calcium 8.9 mg/dL (8.4-10.2); Carbon Dioxide 28 mmol/L (22-30); Creatinine 1 0.99 mg/dL (0.66-1.25); EST GLOMERULAR FILTRATION RATE > 60.0 ML/MIN; Glucose 113 mg/dL (74-106); SGOT/AST 34 U/L (17-59); SGPT/ALT 25 U/L (0-50); SODIUM 141 mmol/L (137-145); TROPONIN < 0.012 ng/mL (0.000-0.034); Total Protein 7.2 g/dL (6.3-8.2)
[2022-09-17] MEDS ORDERED: APRESOLINE 20 MG/ML INJ IV ONE (23:43)
[2022-09-17] MEDS ORDERED: APRESOLINE 20 MG/ML INJ ONE (23:51)
--- NOTE | 2022-09-18 00:36 | XRAY ---
CLINICAL HISTORY:dizziness/hypertyension COMPARISON:None; TECHNIQUES:Multiple axial sections of the head were acquired without intravenous contrast administration. Reformatted images were obtained. Dose: CTDI 53.9mGy DLP 1016.2 mGy*cm; FINDINGS: The visualized brain parenchyma shows toribio-white matter differentiation. CSF dense lesion seen in the capsuloganglionic region on both sides, large on the right side measuring about 14 X 15 mm.No associated perilesional edema. No midline shift. No intracerebral or extra axial hematoma. Normal size and configuration of the cerebral ventricles. Normal CT appearance of the posterior fossa structures. The osseous structures in the skull base are unremarkable. No definite calvarium fractures. Mucosal thickening/retention cyst is seen in the left maxillary sinus. IMPRESSION: 1-No acute intracranial hemorrhage or acute territorial infarction. 2-CSF dense lesion seen in the capsuloganglionic region on both sides, large on the right side measuring about 14 X 15 mm suggesting neuroepithelial/neuroglial cyst. Consider MRI for further analysis. Electronically Signed by: Nolan Guevara MD. (09/17/2022 22:34:46 HEARING AID CONSULTANT)
--- NOTE | 2022-09-18 02:22 | XRAY ---
CLINICAL HISTORY:Dizziness; COMPARISON:None; TECHNIQUES:Axial sections of CT neck angiogram were obtained after administration of intravenous contrast. 80 cc of Isovue-370 was administered to obtain postcontrast images. Reformatted coronal and sagittal images were acquired. 3D reconstructions were also available for review; FINDINGS: Minimal focal calcific atherosclerotic plaque at the left carotic bifurcation. Common carotid artery otherwise shows normal course, caliber, and flow signals on both sides. The cervical segment of the internal carotid artery otherwise shows normal course, caliber, and flow signals on both sides. The visualized bilateral external carotid artery appears unremarkable. The cervical segment of the vertebral artery appears normal on both sides. No evidence of occlusion or significant stenosis. No aneurysmal dilatation or AVM. Degenerative change in the visualized spine. IMPRESSION: No evidence of occlusion or significant stenosis. No aneurysmal dilatation or AVM. Electronically Signed by: Nolan Guevara MD. (09/18/2022 01:18:16 CREW CALLER)
[2022-09-18 02:29] VITALS: O2SAT 100
--- NOTE | 2022-09-18 02:48 | XRAY ---
CLINICAL HISTORY:Dizziness; COMPARISON:CT head 09/18/2022; TECHNIQUES:Axial sections of CT angiogram examination were obtained with and without administration of intravenous contrast. 80 cc Isovue 370 was administered intravenously to obtain postcontrast images. Reformatted coronal and sagittal images were acquired; FINDINGS: Minimal calcific plaques in the bilateral cavernous portion of the internal carotid arteries. Normal anterior cerebral arteries (ACAs) (A1 to A4), anterior communicating arteries (A COM A), and middle cerebral arteries (MCAs) (M1 to M4) form the anterior circulation. The V4 segment of the vertebral arteries, basilar artery, posterior cerebral arteries, and their different anatomical segments from P1 to P4 as well as the posterior communicating arteries all share information of the [place]. These show normal opacification. No significant stenosis. No major occlusion aneurysms or AVM. CSF dense lesion seen in the capsuloganglionic region on both sides, large on the right side suggesting neuroepithelial/neuroglial cyst, as seen on CT head examination. IMPRESSION: No significant stenosis. No major occlusion, aneurysms, or AVM. Electronically Signed by: Nolan Guevara MD. (09/18/2022 01:43:49 DIE TECHNICIAN)
[2022-09-18 03:02] VITALS: BP 129/83; PULSE 75
--- NOTE | 2022-09-18 08:36 | XRAY ---
Indication: Chest pain and dizziness. High blood pressure. Comparison: October 22, 2020 Portable chest demonstrates normal heart and lungs. Bony thorax intact with again mild degenerative changes. No new/acute findings.
== END 2022-09-18 03:03 | disposition home or self-care (01) ==
LOC: ED 21:50
DX: I10 Essential (primary) hypertension (principal); R07.9 Chest pain, unspecified; R42 Dizziness and giddiness; R51.9 Headache, unspecified; R11.0 Nausea; Z28.310 Unvaccinated for COVID-19
CPT/HCPCS: 36415; 70450; 70496; 70498; 71045; 80053; 84484; 85025; 85610; 85730; 93005; 96374; 99284; J0360; A9270-GY

== ENCOUNTER 2024-04-17 19:22 | Emergency (ER) | payer BC ==
--- NOTE | 2024-04-17 19:25 | ERPHSYRPT ---
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 Patient states that he recalls having pain in the right flank, which she still does, and he went to use the restroom. He recalls sitting down on the toilet and then waking up on the floor. He did not recall anything during that period of time. He then got up and then recalls beginning to pass out again and was on the floor. He then called his who contacted the paramedics to be transported to our facility. He stated that this is sim ilar type of episode occurred 30 years ago requiring him to wear a Holter monitor. Patient states that he has been eating and drinking well. He denies chest pain and he denies shortness of breath. There is been no new medications. Patient does have a history of hypertension. He has no abdominal pain. Timing/Duration: today, resolved prior to arrival, improved Severity: moderate (At the time of occurrence) Character of Deficits: none Deficits: no difficulties Baseline/Normal Cognition: alert oriented x 3 Current Cognition: alert oriented x 3 Associated Symptoms: loss of consciousness (He thinks he did twice), No fever, No nausea, No vomiting, No weakness, No seizures, No vision changes, No chest pain, No headache Allergies/Adverse Reactions: No Known Drug Allergies Allergy (Verified 09/17/22 21:53) Home Medications: Losartan/Hydrochlorothiazide [Losartan-Hctz 100-12.5 mg Tab] 1 tab PO DAILY 04/17/24 [History] Hx Tetanus, Diphtheria Vaccination/Date Given: Yes Hx Influenza Vaccination/Date Given: No Hx Pneumococcal Vaccination/Date Given: No Travel Risk - International Travel Have you traveled outside of the country in past 3 weeks: No - Emerging Infectious Disease Are you exhibiting symptoms associated with any current EIDs: No - Review of Systems Constitutional: No Symptoms Eyes: No Symptoms Ears, Nose, & Throat: No Symptoms Respiratory: No Symptoms Cardiac: No Symptoms Abdominal/Gastrointestinal: No Symptoms Genitourinary Symptoms: Flank Pain (Right flank pain) Musculoskeletal: No Symptoms Skin: No Symptoms Neurological: Other (Syncopal episode x 2) Psychological: No Symptoms Endocrine: No Symptoms Hematologic/Lymphatic: No Symptoms Immunological/Allergic: No Symptoms All Other Systems: Reviewed and Negative - Past Medical History Pertinent Past Medical History: Yes Neurological History: No Pertinent History ENT History: No Pertinent History Cardiac History: Hypertension Respiratory History: No Pertinent History Endocrine Medical History: No Pertinent History Musculoskeletal History: No Pertinent History GI Medical History: No Pertinent History History: No Pertinent History Psycho-Social History: No Pertinent History Male Reproductive Disorders: No Pertinent History - Past Surgical History Past Surgical History: Yes Neuro Surgical History: No Pertinent History Cardiac: No Pertinent History Respiratory: No Pertinent History Gastrointestinal: Other Genitourinary: No Pertinent History Musculoskeletal: No Pertinent History Male Surgical History: No Pertinent History 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 Significant Family History: no pertinent family hx - Social History Smoking Status: Never smoker Exposure to second hand smoke: No Drug Use: none Patient Lives Alone: No - Nursing Vital Signs Nursing Vital Signs: Initial Vital Signs Temperature 98.1 F 04/17/24 19:24 Pulse Rate 79 04/17/24 19:24 Respiratory Rate 16 04/17/24 19:24 Blood Pressure 153/97 04/17/24 19:24 O2 Sat by Pulse Oximetry 99 04/17/24 19:24 Pain Scale Pain Intensity 2 - Riya Coma Scale Best Eye Response ([place]): (4) open spontaneously Best Verbal Response ([place]): (5) oriented Best Motor Response (Riya): (6) obeys commands [place] Total: 15 - Physical Exam General Appearance: no apparent distress, alert, anxiety Eye Exam: bilateral eye: normal inspection, PERRL, EOMI Ears, Nose, Throat Exam: normal ENT inspection, moist mucous membranes Neck Exam: normal inspection, non-tender, supple, full range of motion Respiratory: normal breath sounds, lungs clear, airway intact, No chest tende rness, No respiratory distress Cardiovascular: regular rate/rhythm, normal heart sounds, normal peripheral pulses Gastrointestinal: soft, normal bowel sounds, No tenderness Rectal Exam: not done Back Exam: normal inspection, normal range of motion, CVA tenderness, No vertebral tenderness (Right side to percussion) Extremity Exam: normal inspection, normal range of motion, pelvis stable 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 Care 04/17/24 19:26 Active EKG-ER Only STAT Care 04/17/24 19:25 Active IV Insertion STAT Care 04/17/24 19:25 Active Orthostatic Vital Signs STAT Care 04/17/24 19:25 Active POCT Glucose Check STAT Care 04/17/24 19:25 Active Pulse Oximetry (ED) STAT Care 04/17/24 19:25 Active ABDOMEN AND PELVIS W/0 CONTRAS [CT] Stat Exams 04/17/24 19:43 Taken HEAD WITHOUT CONTRAST [CT] Stat Exams 04/17/24 19:25 Taken CBC W DIFF Stat Lab 04/17/24 19:35 Completed CMP Stat Lab 04/17/24 19:35 Completed MAG [MAGNESIUM] Stat Lab 04/17/24 19:35 Completed PROTIME WITH INR Stat Lab 04/17/24 19:35 Completed UA W/RFX UR CULTURE Stat Lab 04/17/24 20:01 Completed Holter Monitor ONCE RT 04/17/24 22:14 Ordered Medication Summary Generic Name Dose Route Start Last Admin Trade Name Freq PRN Reason Stop Dose Admin Sodium Chloride 1,000 mls @ 100 mls/hr 04/17/24 19:30 04/17/24 19:59 Sodium Chloride 0.9% 1000 Ml IV 05/17/24 19:29 100 mls/hr .Q10H SABA Administration Lab/Rad Data: Laboratory Result Diagrams 04/17/24 19:35 04/17/24 19:35 Laboratory Results 04/17/24 04/17/24 04/17/24 Range/Units 20:01 19:35 19:35 WBC (4.23-9.07) x10^3/uL RBC (4.63-6.08) x10^6/uL Hgb (13.7-17.5) g/dL Hct (40.1-51.0) % MCV (79.0-92.2) fL MCH (25.7-32.2) pg MCHC (32.3-36.5) g/dL RDW (11.6-14.4) % Plt Count (163-337) x10^3/uL MPV (9.4-12.4) fL Gran % (34.0-67.9) % Immature Gran % (Auto) (0.001-0.429) % Nucleat RBC Rel Count (0.00-0.2) % Eos # (Auto) (0.04-0.54) x10^3/uL Immature Gran # (Auto) (0.001-0.031) x10^3u/L Absolute Lymphs (auto) (1.32-3.57) x10^3/uL Absolute Monos (auto) (0.30-0.82) x10^3/uL Absolute Nucleated RBC (0.00-0.012) x10^3u/L Lymphocytes % (21.8-53.1) % Monocytes % (5.3-12.2) % Eosinophils % (0.8-7.0) % Basophils % (0.2-1.2) % Absolute Granulocytes (1.78-5.38) x10^3/uL Basophils # (0.01-0.08) x10^3/uL PT 10.3 (9.4-12.5) SECONDS INR 0.94 (0.8-3.0) Sodium (135-145) mmol/L Potassium (3.5-5.1) mmol/L Chloride (98-107) mmol/L Carbon Dioxide (22-30) mmol/L Anion Gap (5-15) MEQ/L BUN (9-20) mg/dL Creatinine (0.66-1.25) mg/dL Estimated GFR ML/MIN Glucose (74-106) mg/dL Calcium (8.4-10.2) mg/dL Magnesium 1.8 (1.6-2.3) mg/dL Total Bilirubin (0.2-1.3) mg/dL AST (17-59) U/L ALT (0-50) U/L Alkaline Phosphatase (38-126) U/L Serum Total Protein (6.3-8.2) g/dL Albumin (3.5-5.0) g/dL Urine Color Yellow (Yellow) Urine Appearance Clear (Clear) Urine pH 7.0 (4.6-8.0) Ur Specific [place] 1.015 (1.005-1.030) Urine Protein Negative (Negative) Urine Glucose (UA) Negative (Negative) mg/dL Urine Ketones Negative (Negative) Urine Blood Negative (Negative) Urine Nitrite Negative (Negative) Urine Bilirubin Negative (Negative) Urine Urobilinogen 0.2 (0.2) mg/dL Ur Leukocyte Esterase Negative (Negative) U Hyaline Cast (Auto) NONE SEEN (0-2) /LPF Urine Microscopic RBC 3-5 (0-5) /HPF Urine Microscopic WBC 0-2 (0-5) /HPF Ur Epithelial Cells None Seen (None Seen) /HPF Urine Bacteria None Seen (None Seen) /HPF Urine Culture Reflexed NO (NO) 04/17/24 04/17/24 Range/Units 19:35 19:35 WBC 10.0 H (4.23-9.07) x10^3/uL RBC 5.13 (4.63-6.08) x10^6/uL Hgb 13.5 L (13.7-17.5) g/dL Hct 42.4 (40.1-51.0) % MCV 82.7 (79.0-92.2) fL MCH 26.3 (25.7-32.2) pg MCHC 31.8 L (32.3-36.5) g/dL RDW 14.7 H (11.6-14.4) % Plt Count 229 (163-337) x10^3/uL MPV 9.6 (9.4-12.4) fL Gran % 83.4 H (34.0-67.9) % Immature Gran % (Auto) 0.3 (0.001-0.429) % Nucleat RBC Rel Count 0.0 (0.00-0.2) % Eos # (Auto) 0.11 (0.04-0.54) x10^3/uL Immature Gran # (Auto) 0.03 (0.001-0.031) x10^3u/L Absolute Lymphs (auto) 0.90 L (1.32-3.57) x10^3/uL Absolute Monos (auto) 0.58 (0.30-0.82) x10^3/uL Absolute Nucleated RBC 0.00 (0.00-0.012) x10^3u/L Lymphocytes % 9.0 L (21.8-53.1) % Monocytes % 5.8 (5.3-12.2) % Eosinophils % 1.1 (0.8-7.0) % Basophils % 0.4 (0.2-1.2) % Absolute Granulocytes 8.32 H (1.78-5.38) x10^3/uL Basophils # 0.04 (0.01-0.08) x10^3/uL PT (9.4-12.5) SECONDS INR (0.8-3.0) Sodium 141 (135-145) mmol/L Potassium 3.8 (3.5-5.1) mmol/L Chloride 102 (98-107) mmol/L Carbon Dioxide 30 (22-30) mmol/L Anion Gap 13.1 (5-15) MEQ/L BUN 19 (9-20) mg/dL Creatinine 1.02 (0.66-1.25) mg/dL Estimated GFR 82.6 ML/MIN Glucose 103 (74-106) mg/dL Calcium 9.6 (8.4-10.2) mg/dL Magnesium (1.6-2.3) mg/dL Total Bilirubin 0.70 (0.2-1.3) mg/dL AST 32 (17-59) U/L ALT 24 (0-50) U/L Alkaline Phosphatase 52 (38-126) U/L Serum Total Protein 7.6 (6.3-8.2) g/dL Albumin 4.9 (3.5-5.0) g/dL Urine Color (Yellow) Urine Appearance (Clear) Urine pH (4.6-8.0) Ur Specific [place] (1.005-1.030) Urine Protein (Negative) Urine Glucose (UA) (Negative) mg/dL Urine Ketones (Negative) Urine Blood (Negative) Urine Nitrite (Negative) Urine Bilirubin (Negative) Urine Urobilinogen (0.2) mg/dL Ur Leukocyte Esterase (Negative) U Hyaline Cast (Auto) (0-2) /LPF Urine Microscopic RBC (0-5) /HPF Urine Microscopic WBC (0-5) /HPF Ur Epithelial Cells (None Seen) /HPF Urine Bacteria (None Seen) /HPF Urine Culture Reflexed (NO) - Progress Progress: improved, re-examined Progress Note: 04/17/24 22:15 My medical decision making and the assignment of moderate complexity to this patient's medical issue today is based on review of the patient's past medical history, review patient medication list, reviewed patient drug allergy list, history present illness and physical findings on examination. The workup in this patient includes placement of intravenous line, infusion of normal saline solution, twelve-lead EKG, troponin level, CBC, CMP, magnesium level, urinalysis, CT scan of the head without contrast and CT scan of the abdomen and pelvis without contrast. Differential diagnosis includes but is not limited to vasovagal reaction, anemia, arrhythmia, myocardial infarction, acute intracranial abnormality, electrolyte abnormality, I interpreted the patient's laboratory data results. Based on the laboratory data results, there are no acute, emergent findings. The following CT scans without contrast were interpreted by the radiologist and I reviewed the impression: CT scan of the abdomen pelvis without contrast is normal. Nothing is acute. CT scan of the head without contrast, when compared to similar study dated 09/17/2022 shows no new or acute findings. 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 Take your medications as prescribed. Wear your Holter monitor as instructed. Return the Holter monitor as instructed. Call your primary care provider on 04/20/2024 to make arranges for follow-up appointment for further evaluation and management.
[2024-04-17 19:39] VITALS: TEMP 98.1
[2024-04-17 19:41] LABS: Absolute Neutrophil Ct (ANC) 8.32 x10^3/uL (1.78-5.38); BASOPHIL % 0.4 % (0.2-1.2); Basophil (Absolute #) 0.04 x10^3/uL (0.01-0.08); Eosinophil % 1.1 % (0.8-7.0); Eosinophil (Absolute #) 0.11 x10^3/uL (0.04-0.54); Hematocrit 42.4 % (40.1-51.0); Hemoglobin 13.5 g/dL (13.7-17.5); IMMATURE GRAN # 0.03 x10^3u/L (0.001-0.031); IMMATURE GRAN % 0.3 % (0.001-0.429); Mean Cell Volume 82.7 fL (79.0-92.2); Mean Corpuscular Hemoglobin 26.3 pg (25.7-32.2); Mean Corpuscular Hgb Concent. 31.8 g/dL (32.3-36.5); Mean Platelet Volume 9.6 fL (9.4-12.4); Monocyte (Absolute #) 0.58 x10^3/uL (0.30-0.82); Monocytes % 5.8 % (5.3-12.2); Neutrophil % 83.4 % (34.0-67.9); Platelet Count 229 x10^3/uL (163-337); Red Blood Count 5.13 x10^6/uL (4.63-6.08); Red Cell Distribution Width 14.7 % (11.6-14.4)
[2024-04-17] MEDS ORDERED: Sodium Chloride 0.9% 1000 ML 1,000 ML ONE (19:45)
[2024-04-17 19:53] LABS: ALBUMIN 4.9 g/dL (3.5-5.0); ANION GAP 13.1 MEQ/L (5-15); BILIRUBIN,TOTAL 0.7 mg/dL (0.2-1.3); Calcium 9.6 mg/dL (8.4-10.2); Creatinine 1 1.02 mg/dL (0.66-1.25); EST GLOMERULAR FILTRATION RATE 82.6 ML/MIN; Potassium 3.8 mmol/L (3.5-5.1); Total Protein 7.6 g/dL (6.3-8.2)
[2024-04-17 19:56] LABS: INR 0.94 (0.8-3.0); PROTIME 10.3 SECONDS (9.4-12.5)
[2024-04-17] MEDS: Sodium Chloride 0.9% 1000 ML 1,000 ML IV SCH (19:59)
[2024-04-17 20:22] LABS: Appearance Clear (Clear); Bacteria None Seen /HPF (None Seen); Bilirubin Negative (Negative); Blood Negative (Negative); Epithelial Cells None Seen /HPF (None Seen); Glucose, Urine Negative (Negative); Hyaline Casts NONE SEEN /LPF (0-2); Ketones Negative (Negative); Leukocyte Esterase Negative (Negative); Nitrite Negative (Negative); Protein,Urine Dip Negative (Negative); Specific Gravity 1.015 (1.005-1.030); Urobilinogen 0.2 mg/dL (0.2); WBC 0-2 /HPF (0-5)
[2024-04-17 22:52] VITALS: BP 151/91; PULSE 82; RESP 14; O2SAT 98
--- NOTE | 2024-04-18 08:22 | XRAY ---
Indication: Syncope x 2. Multiple contiguous axial images obtained through the head without contrast. Comparison: September 17, 2022 Stable small bilateral basal ganglia remote infarcts. No acute intracranial hemorrhage, abnormal extra-axial fluid collection, or mass effect. Fourth ventricle is midline without hydrocephalus. Coleman-white matter differentiation preserved. Bony calvarium intact. Visualized paranasal sinuses and mastoid air cells are clear. Impression: Stable bilateral basal ganglia remote infarcts. No new/acute intracranial abnormalities.
--- NOTE | 2024-04-18 08:23 | XRAY ---
Indication: Right flank pain. Multiple contiguous axial images obtained through the abdomen and pelvis without contrast. Comparison: None Lung bases clear. Heart not enlarged. Noncontrasted stomach and bowel loops appear nonobstructed with normal appendix. No free fluid/air. Remaining liver, gallbladder, pancreas, spleen, adrenal glands, kidneys, ureters, and bladder are unremarkable for noncontrast exam. Minimal aortoiliac calcifications without AAA. Osseous structures intact with minimal multilevel thoracolumbar degenerative spondylosis and mild bilateral hip degenerative changes. No ventral or inguinal hernias. 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 Remaining CT abdomen/pelvis without contrast exam is negative.
== END 2024-04-17 23:17 | disposition home or self-care (01) ==
LOC: ED 19:22
DX: R55 Syncope and collapse (principal); R10.9 Unspecified abdominal pain; I10 Essential (primary) hypertension; Z79.899 Other long term (current) drug therapy
CPT/HCPCS: 36415; 70450; 74176; 80053; 81001; 83735; 85025; 85610; 93005; 93041; 94760; 96374; 99284